=== PATIENT | male | born 1955 | race Two or more races ===

== ENCOUNTER 2016-11-14 02:20 | Emergency (ER) | payer OTHER ==
[~2016-11-14] VITALS: Ht 170.2 cm; Wt 74.8 kg
[2016-11-14 02:38] VITALS: BP 160/98
--- NOTE | 2016-11-14 02:38 | NUR ---
PT BIBSON, C/O COUGH AND CONGESTION X 3 DAYS. PT AOX4 RR EVEN AND UNLABORED. NO SOB NOTED. NAD NOTED. NO NVD AT THIS TIME. PT NOT DIAPHORETIC. PT PLACED ON MONITOR. WAITING FOR MD LUNSFORD.
--- NOTE | 2016-11-14 02:39 | NUR ---
DR. TSE AT BEDSIDE FOR EVAL.
--- NOTE | 2016-11-14 02:45 | NUR ---
XRAY AT BEDSIDE
--- NOTE | 2016-11-14 04:10 | NUR ---
PER OG FAXED XRAY RESULTS. GIVEN TO DR. TSE.
--- NOTE | 2016-11-14 04:11 | NUR ---
Patient discharged to home in stable condition. Written and verbal after care instructions given. Patient verbalizes understanding of instruction. ambulatory with a steady gait
== END 2016-11-14 04:12 | disposition home or self-care (01) ==
LOC: ER 02:23
DX: J06.9 Acute upper respiratory infection, unspecified (principal)
CPT/HCPCS: 71010-TC; A4606; Z7610

== ENCOUNTER 2018-01-18 17:59 | Emergency (ER) | payer OTHER ==
[~2018-01-18] VITALS: Ht 170.2 cm; Wt 76.2 kg
[2018-01-18 18:05] VITALS: BP 162/98
== END 2018-01-18 19:16 | disposition home or self-care (01) ==
LOC: ER 18:07
DX: J20.9 Acute bronchitis, unspecified (principal); R03.0 Elevated blood-pressure reading, without diagnosis of hypertension; F17.200 Nicotine dependence, unspecified, uncomplicated
CPT/HCPCS: 71045; 99283; A4606; Z7610

== ENCOUNTER 2018-01-24 12:39 | Emergency (ER) | payer OTHER ==
[~2018-01-24] VITALS: Ht 165.1 cm; Wt 74.8 kg
[2018-01-24 12:56] VITALS: BP 163/91
== END 2018-01-24 13:40 | disposition home or self-care (01) ==
LOC: ER 12:41
DX: I10 Essential (primary) hypertension (principal); E78.00 Pure hypercholesterolemia, unspecified; F17.200 Nicotine dependence, unspecified, uncomplicated
CPT/HCPCS: A4606; Z7610

== ENCOUNTER 2018-10-16 13:54 | Emergency (ER) | payer MEDICAID, OTHER ==
[~2018-10-16] VITALS: Ht 172.7 cm; Wt 74.8 kg
--- NOTE | 2018-10-16 13:59 | NUR ---
PT BIBSELF FOR LOW BACK PAIN S/P LIFTING HEAVY OBJECTS; PT AAOX4, PT TO BED 10, VSS, NAD NOTED, PENDING MD LUNSFORD
--- NOTE | 2018-10-16 14:02 | NUR ---
back pain x 10 days
[2018-10-16] MEDS ORDERED: CYCLOBENZAPRINE 10 MG TABLET ONE (14:50)
[2018-10-16] MEDS ORDERED: KETOROLAC TROMETHAMINE INJ 60 MG/2 ML VIAL IM ONE ×2 (14:50→15:00)
[2018-10-16] MEDS ORDERED: CYCLOBENZAPRINE 10 MG TABLET PO ONE (15:00)
--- NOTE | 2018-10-16 15:41 | NUR ---
CALLED OG TO HAVE IMAGE READ
[2018-10-16 16:38] LABS: BASOPHILS # (AUTO) 0.3 /CMM (0.0-0.2); BASOPHILS % (AUTO) 3.1 % (0.0-2.0); EOSINOPHILS % (AUTO) 1.2 % (0.0-6.0); HEMATOCRIT 41 % (39-51); HEMOGLOBIN 13.9 g/dL (13.5-17.5); LYMPHOCYTES # (AUTO) 2.4 /CMM (0.8-4.8); LYMPHOCYTES % (AUTO) 27.9 % (20.0-44.0); MEAN CORPUSCULAR HGB CONC 34 g/dl (31.0-36.0); MEAN CORPUSCULAR VOLUME 93 fL (80-96); MONOCYTES # (AUTO) 0.6 /CMM (0.1-1.30); MONOCYTES % (AUTO) 7.1 % (2.0-12.0); NEUTROPHILS # (AUTO) 5.2 /CMM (1.8-8.9); NEUTROPHILS % (AUTO) 60.7 % (43.0-81.0); PLATELET COUNT (AUTO) 319 /CMM (150-450); RED BLOOD CELL COUNT(AUTO) 4.43 MIL/uL (4.5-6.0); WHITE BLOOD COUNT (AUTO) 8.5 K/uL (4.3-11.0)
[2018-10-16 16:46] LABS: CALCIUM, SERUM 8.7 mg/dL (8.5-10.1); CREATININE 0.7 mg/dL (0.6-1.3); POTASSIUM 4.1 mmol/L (3.5-5.1)
--- NOTE | 2018-10-16 17:26 | NUR ---
RAMYA ROSENBAUM, SON [phone]
--- NOTE | 2018-10-16 17:37 | NUR ---
CALLED OG FOR IMAGES TO BE READ
--- NOTE | 2018-10-16 18:18 | NUR ---
Patient discharged to home in stable condition. Written and verbal after care instructions given. Patient verbalizes understanding of instruction.
[2018-10-16 18:27] VITALS: BP 139/90
== END 2018-10-16 18:27 | disposition home or self-care (01) ==
LOC: ER 13:55
DX: M54.5 Low back pain (principal); I10 Essential (primary) hypertension; E78.00 Pure hypercholesterolemia, unspecified; F17.200 Nicotine dependence, unspecified, uncomplicated; W20.8XXA Other cause of strike by thrown, projected or falling object, initial encounter; Y93.E9 Activity, other interior property and clothing maintenance; Y92.89 Other specified places as the place of occurrence of the external cause; Y99.8 Other external cause status
CPT/HCPCS: 36415; 71045; 72110; 72128; 72131; 80048; 85025; 85730; 93005; 96372; 99284; J1885

== ENCOUNTER 2018-12-03 12:58 | Emergency (ER) | payer MEDICAID, OTHER ==
[~2018-12-03] VITALS: Ht 170.2 cm; Wt 79.4 kg
[2018-12-03 13:19] VITALS: BP 126/71
== END 2018-12-03 14:45 | disposition home or self-care (01) ==
LOC: ER 13:00
DX: S80.212A Abrasion, left knee, initial encounter (principal); M70.52 Other bursitis of knee, left knee; I10 Essential (primary) hypertension; E78.00 Pure hypercholesterolemia, unspecified; F17.200 Nicotine dependence, unspecified, uncomplicated; W22.8XXA Striking against or struck by other objects, initial encounter; Y93.89 Activity, other specified; Y92.89 Other specified places as the place of occurrence of the external cause; Y99.8 Other external cause status
CPT/HCPCS: 73560-TC

== ENCOUNTER 2019-01-25 11:27 | Emergency (ER) | payer OTHER ==
[~2019-01-25] VITALS: Ht 170.2 cm; Wt 77.1 kg
[2019-01-25 11:39] VITALS: BP 147/95
[2019-01-25] MEDS ORDERED: LIDOCAINE MPF 1%-EPI 1:200,000 30 ML VIAL IJ ONE (14:09)
== END 2019-01-25 17:34 | disposition home or self-care (01) ==
LOC: ER 11:27
DX: M70.42 Prepatellar bursitis, left knee (principal); I10 Essential (primary) hypertension; E78.00 Pure hypercholesterolemia, unspecified; F17.200 Nicotine dependence, unspecified, uncomplicated; Y93.89 Activity, other specified
CPT/HCPCS: 20610; 36415; 73564; 89051; 99284; J3490

== ENCOUNTER 2019-02-11 14:04 | Emergency (ER) | payer OTHER ==
[~2019-02-11] VITALS: Ht 170.2 cm; Wt 70.3 kg
--- NOTE | 2019-02-11 14:21 | NUR ---
PT. CAME IN FOR DIFFUSED ABDOMINAL PAIN 2x DAYS. PT IS PLACED INTO BED 9. PT NOT IN ANY DISTRESS. EVEN AND UNLABORED BREATHING. VSS. AAOX4. WILL CONTINUE TO MONITOR FOR SAFETY.
[2019-02-11] MEDS ORDERED: IV NS 0.9% 500 ML BAG IV ONE (14:30)
[2019-02-11 14:42] LABS: BASOPHILS % (AUTO) 0.5 % (0.0-2.0); EOSINOPHILS % (AUTO) 1.5 % (0.0-6.0); HEMATOCRIT 38 % (39-51); HEMOGLOBIN 13.2 g/dL (13.5-17.5); LYMPHOCYTES # (AUTO) 2.7 /CMM (0.8-4.8); MEAN CORPUSCULAR HGB CONC 35 g/dl (31.0-36.0); MEAN CORPUSCULAR VOLUME 91 fL (80-96); MONOCYTES # (AUTO) 0.8 /CMM (0.1-1.30); MONOCYTES % (AUTO) 9.6 % (2.0-12.0); NEUTROPHILS # (AUTO) 4.7 /CMM (1.8-8.9); NEUTROPHILS % (AUTO) 56.4 % (43.0-81.0); PLATELET COUNT (AUTO) 331 /CMM (150-450); RED BLOOD CELL COUNT(AUTO) 4.19 MIL/uL (4.5-6.0); WHITE BLOOD COUNT (AUTO) 8.4 K/uL (4.3-11.0)
[2019-02-11 14:52] LABS: CALCIUM, SERUM 9.1 mg/dL (8.5-10.1); CARBON DIOXIDE 27 mmol/L (21-32); CHLORIDE 101 mmol/L (98-107); CREATININE 0.7 mg/dL (0.6-1.3); GLUCOSE 93 mg/dL (74-106); POTASSIUM 3.5 mmol/L (3.5-5.1); SODIUM SERUM 137 mmol/L (136-145); UREA NITROGEN, BLOOD 16 mg/dL (7-18)
[2019-02-11 15:05] LABS: ALANINE AMINOTRANSFERASE 39 U/L (12-78); ALBUMIN 3.6 g/dL (3.4-5.0); ALKALINE PHOSPHATASE 94 U/L (46-116); ASPARTATE AMINOTRANSFERASE 24 U/L (15-37); BILIRUBIN,DIRECT 0.1 mg/dL (0.0-0.2); BILIRUBIN,TOTAL 0.6 mg/dL (0.2-1.0); LIPASE 127 U/L (73-393); TOTAL PROTEIN, SERUM 7.7 g/dL (6.4-8.2)
--- NOTE | 2019-02-11 16:22 | NUR ---
IV removed. Catheter intact and site benign. Pressure and 4x4 applied to site. No bleeding noted.Patient discharged to home in stable condition. Written and verbal after care instructions given. Patient verbalizes understanding of instruction.
[2019-02-11 16:23] VITALS: BP 137/88
== END 2019-02-11 16:23 | disposition home or self-care (01) ==
LOC: ER 14:04
DX: K57.32 Diverticulitis of large intestine without perforation or abscess without bleeding (principal); I10 Essential (primary) hypertension; E78.00 Pure hypercholesterolemia, unspecified; F17.200 Nicotine dependence, unspecified, uncomplicated
CPT/HCPCS: 36415; 80048-TC; 80076-TC; 83690-TC; 84484-TC; 85025-TC; J7040

== ENCOUNTER 2019-12-04 15:45 | Emergency (ER) | payer OTHER ==
[~2019-12-04] VITALS: Ht 170.2 cm; Wt 79.4 kg
[2019-12-04 16:11] VITALS: BP 165/96
--- NOTE | 2019-12-04 16:18 | NUR ---
SEEN AND EXAMINED BY .
--- NOTE | 2019-12-04 16:35 | NUR ---
PRODUCT LINE MANAGER AT BEDSIDE FOR XRAY.
[2019-12-04] MEDS ORDERED: ATOR40TA PO (17:00)
[2019-12-04] MEDS ORDERED: HYDR25TA4 PO (17:00)
--- NOTE | 2019-12-04 18:23 | NUR ---
Patient discharged to home in stable condition. Written and verbal after care instructions given. Patient verbalizes understanding of instruction.
== END 2019-12-04 18:24 | disposition home or self-care (01) ==
LOC: ER 16:00
DX: B34.9 Viral infection, unspecified (principal); I10 Essential (primary) hypertension; E78.00 Pure hypercholesterolemia, unspecified; F17.200 Nicotine dependence, unspecified, uncomplicated; Z79.899 Other long term (current) drug therapy
CPT/HCPCS: 71045-TC

== ENCOUNTER 2020-01-07 18:04 | Emergency (ER) | payer OTHER ==
[~2020-01-07] VITALS: Ht 170.2 cm; Wt 79.4 kg
[~2020-01-07 18:04] MED LIST: ATOR40TA PO; HYDR25TA4 PO
--- NOTE | 2020-01-07 18:05 | NUR ---
PT BIB SELF C/O R HAND LACERATION. PT IS AAOX4, NOT IN RESPIRATORY DISTRESS, V/S STABLE, KEPT RESTED AND COMFORTABLE. WILL CONTINUE TO MONITOR.
--- NOTE | 2020-01-07 18:43 | NUR ---
TRACY ULLOA AT BEDSIDE FOR EVAL.
[2020-01-07] MEDS ORDERED: TDAP [DIPH/PERTUSSIS/TET] 0.5 ML VIAL IM ONE ×2 (18:45→19:00)
[2020-01-07] MEDS ORDERED: ACETAMINOPHEN ES 500 MG TABLET ONE (18:45)
[2020-01-07] MEDS ORDERED: LIDOCAINE 1%-EPI 1:100,000 20 ML VIAL ONE (18:46)
--- NOTE | 2020-01-07 18:58 | NUR ---
PRECISION HONING MACHINE OPERATOR AT BEDSIDE FOR XRAY.
[2020-01-07] MEDS ORDERED: ACETAMINOPHEN 325 MG TABLET PO ONE (19:00)
[2020-01-07 20:23] VITALS: BP 132/79
--- NOTE | 2020-01-07 20:23 | NUR ---
Patient discharged to home in stable condition. Written and verbal after care instructions given. Patient verbalizes understanding of instruction.
== END 2020-01-07 20:25 | disposition home or self-care (01) ==
LOC: ER 18:08
DX: S61.411A Laceration without foreign body of right hand, initial encounter (principal); I10 Essential (primary) hypertension; E78.00 Pure hypercholesterolemia, unspecified; Z79.899 Other long term (current) drug therapy; W25.XXXA Contact with sharp glass, initial encounter; Y93.89 Activity, other specified; Y92.89 Other specified places as the place of occurrence of the external cause; Y99.8 Other external cause status
CPT/HCPCS: 12002; 73130; 90471; 90715; 99283; A6403; J3490; L3763

== ENCOUNTER 2020-01-10 10:03 | Emergency (ER) | payer OTHER ==
[~2020-01-10] VITALS: Ht 170.2 cm; Wt 68.0 kg
[2020-01-10 10:12] VITALS: BP 136/83
== END 2020-01-10 10:38 | disposition home or self-care (01) ==
LOC: ER 10:03
DX: S61.411D Laceration without foreign body of right hand, subsequent encounter (principal); I10 Essential (primary) hypertension; E78.00 Pure hypercholesterolemia, unspecified; Z79.899 Other long term (current) drug therapy; X58.XXXD Exposure to other specified factors, subsequent encounter

== ENCOUNTER 2020-01-17 15:26 | Emergency (ER) | payer OTHER ==
[~2020-01-17] VITALS: Ht 170.2 cm; Wt 77.1 kg
[2020-01-17 15:26] VITALS: BP 137/89
--- NOTE | 2020-01-17 16:01 | NUR ---
Suture removed, patient tolerated.
== END 2020-01-17 16:19 | disposition home or self-care (01) ==
LOC: ER 15:26
DX: S61.411D Laceration without foreign body of right hand, subsequent encounter (principal); I10 Essential (primary) hypertension; E78.00 Pure hypercholesterolemia, unspecified; Z79.899 Other long term (current) drug therapy; X58.XXXD Exposure to other specified factors, subsequent encounter

== ENCOUNTER 2020-01-25 13:51 | Emergency (ER) | payer OTHER ==
[~2020-01-25] VITALS: Ht 154.9 cm; Wt 68.0 kg
[2020-01-25 14:30] VITALS: BP 147/86
[2020-01-25] MEDS ORDERED: KETOROLAC TROMETHAMINE INJ 30 MG/ML VIAL ONE (14:52)
[2020-01-25] MEDS ORDERED: KETOROLAC TROMETHAMINE INJ 60 MG/2 ML VIAL IM ONE (15:00)
--- NOTE | 2020-01-25 15:34 | NUR ---
Patient discharged to home in stable condition. Written and verbal after care instructions given. Patient verbalizes understanding of instruction.
== END 2020-01-25 15:36 | disposition home or self-care (01) ==
LOC: ER 13:54
DX: S43.492A Other sprain of left shoulder joint, initial encounter (principal); I10 Essential (primary) hypertension; E78.00 Pure hypercholesterolemia, unspecified; F17.200 Nicotine dependence, unspecified, uncomplicated; Z79.899 Other long term (current) drug therapy; X58.XXXA Exposure to other specified factors, initial encounter; Y93.89 Activity, other specified; Y92.89 Other specified places as the place of occurrence of the external cause; Y99.8 Other external cause status
CPT/HCPCS: 29105; 96372; 99283; J1885

== ENCOUNTER 2020-02-11 13:05 | Emergency (ER) | payer OTHER ==
[~2020-02-11] VITALS: Ht 170.2 cm; Wt 77.1 kg
[2020-02-11 13:10] VITALS: BP 145/96
[2020-02-11] MEDS ORDERED: KETOROLAC TROMETHAMINE INJ 60 MG/2 ML VIAL IM ONE ×2 (13:30→13:41)
--- NOTE | 2020-02-11 13:49 | NUR ---
Patient discharged to home in stable condition. Written and verbal after care instructions given. Patient verbalizes understanding of instruction.
== END 2020-02-11 13:51 | disposition home or self-care (01) ==
LOC: ER 13:07
DX: S23.3XXA Sprain of ligaments of thoracic spine, initial encounter (principal); I10 Essential (primary) hypertension; E78.00 Pure hypercholesterolemia, unspecified; F17.200 Nicotine dependence, unspecified, uncomplicated; Z79.899 Other long term (current) drug therapy; X58.XXXA Exposure to other specified factors, initial encounter; Y93.89 Activity, other specified; Y92.89 Other specified places as the place of occurrence of the external cause; Y99.8 Other external cause status
CPT/HCPCS: 96372; 99283; J1885

== ENCOUNTER 2020-03-03 15:11 | Emergency (ER) | payer OTHER ==
[~2020-03-03] VITALS: Ht 170.2 cm; Wt 77.1 kg
[2020-03-03 15:25] VITALS: BP 148/95
== END 2020-03-03 16:08 | disposition home or self-care (01) ==
LOC: ER 15:14
DX: S43.492A Other sprain of left shoulder joint, initial encounter (principal); D17.1 Benign lipomatous neoplasm of skin and subcutaneous tissue of trunk; I10 Essential (primary) hypertension; E78.00 Pure hypercholesterolemia, unspecified; Z79.899 Other long term (current) drug therapy; X58.XXXA Exposure to other specified factors, initial encounter; Y93.89 Activity, other specified; Y92.89 Other specified places as the place of occurrence of the external cause; Y99.8 Other external cause status

== ENCOUNTER 2020-07-11 20:45 | Emergency (ER) | payer OTHER ==
[~2020-07-11] VITALS: Ht 170.2 cm; Wt 77.1 kg
[2020-07-11 21:28] VITALS: BP 155/89
--- NOTE | 2020-07-11 21:28 | NUR ---
PT BIBSELF C/O HIGH BLOOD PRESSURE. PT AAOX4 BREATHING EVENLY AND UNLABORED. PT STATES "I HAD A HEADACHE AT 1300 AND I TOOK MY BP TWICE IT WAS IN THE 190S BOTH TIMES". UPON ASSESSMENT PT BP 155/89. PT HOOKED TO [employer]ER AND POX. PT SKIN WARM, DRY AND INTACT. PT GIVEN BLANKET AND CALL LIGHT WITHIN REACH.
--- NOTE | 2020-07-11 22:08 | NUR ---
Pt is medically stable for D/C. Patient discharged to home in stable condition. Written and verbal after care instructions given. Patient verbalizes understanding of instruction.
== END 2020-07-11 22:10 | disposition home or self-care (01) ==
LOC: ER 20:48
DX: I10 Essential (primary) hypertension (principal); E78.00 Pure hypercholesterolemia, unspecified; Z79.899 Other long term (current) drug therapy

== ENCOUNTER 2020-11-24 20:21 | Emergency (ER) | payer OTHER ==
[~2020-11-24] VITALS: Ht 170.2 cm; Wt 72.6 kg
[2020-11-24 20:52] VITALS: BP 132/81
[2020-11-24] MEDS ORDERED: PRED20TA PO (21:23)
[2020-11-24] MEDS ORDERED: DIPH25CA83 PO (21:23)
== END 2020-11-24 21:27 | disposition home or self-care (01) ==
LOC: ER 20:26
DX: R21 Rash and other nonspecific skin eruption (principal); I10 Essential (primary) hypertension; E78.00 Pure hypercholesterolemia, unspecified; F17.200 Nicotine dependence, unspecified, uncomplicated; Z79.899 Other long term (current) drug therapy

== ENCOUNTER 2021-10-13 08:14 | Emergency (ER) | payer OTHER ==
[~2021-10-13] VITALS: Ht 170.2 cm; Wt 74.8 kg
[~2021-10-13 08:14] MED LIST changes: +DIPH25CA83 PO; +PRED20TA PO
--- NOTE | 2021-10-13 08:19 | NUR ---
BISB C/O LEFT SIDED BACK PAIN X MONTHS, PT IS AMBULATORY AND DENIES ANY UA S/S. AWAITING MD LUNSFORD.
--- NOTE | 2021-10-13 08:35 | NUR ---
X RAY AT BEDSIDE
[2021-10-13] MEDS ORDERED: IBUP-1955 PO (08:49)
[2021-10-13] MEDS ORDERED: CAPS1ADH5 TP (08:49)
--- NOTE | 2021-10-13 09:11 | NUR ---
Patient discharged to home in stable condition. Written and verbal after care instructions given. Patient verbalizes understanding of instruction.
[2021-10-13 09:12] VITALS: BP 147/80
== END 2021-10-13 09:12 | disposition home or self-care (01) ==
LOC: ER 08:20
DX: M54.50 Low back pain, unspecified (principal); I10 Essential (primary) hypertension; E78.00 Pure hypercholesterolemia, unspecified; F17.200 Nicotine dependence, unspecified, uncomplicated; Z79.899 Other long term (current) drug therapy
CPT/HCPCS: 72100-TC

== ENCOUNTER 2021-12-17 20:37 | Inpatient (IN) | payer OTHER ==
[~2021-12-17] VITALS: Ht 170.2 cm; Wt 81.6 kg
[~2021-12-17 20:37] MED LIST changes: +CAPS1ADH5 TP; +IBUP-1955 PO
--- NOTE | 2021-12-17 20:50 | NUR ---
TO ER BED 19. BIBSELF C/O RASH X3 DAYS. TAKING BENADRYL AT HOME. PT IS ALERT AND ORIENTED. AMBULATORY WITH STEADY GAIT. CONNECTED TO MONITOR. AWAITING MD LUNSFORD
--- NOTE | 2021-12-17 21:13 | NUR ---
LAB AT BEDSIDE
--- NOTE | 2021-12-17 21:15 | NUR ---
PT AMBULATED TO BATHROOM, STEADY GAIT NOTED
--- NOTE | 2021-12-17 21:18 | NUR ---
URINE SAMPLE SENT TO LAB
[2021-12-17 21:21] LABS: BASOPHILS % (AUTO) 0.5 % (0.0-2.0); EOSINOPHILS % (AUTO) 0.8 % (0.0-6.0); HEMATOCRIT 38 % (39-51); HEMOGLOBIN 12.9 g/dL (13.5-17.5); LYMPHOCYTES # (AUTO) 1.9 K/uL (0.8-4.8); LYMPHOCYTES % (AUTO) 23.2 % (20.0-44.0); MEAN CORPUSCULAR HGB CONC 34 g/dl (31.0-36.0); MEAN CORPUSCULAR VOLUME 93 fL (80-96); MONOCYTES # (AUTO) 0.8 K/uL (0.1-1.30); MONOCYTES % (AUTO) 9.6 % (2.0-12.0); NEUTROPHILS # (AUTO) 5.3 K/uL (1.8-8.9); NEUTROPHILS % (AUTO) 65.9 % (43.0-81.0); PLATELET COUNT (AUTO) 298 K/uL (150-450)
[2021-12-17 21:43] LABS: BILIRUBIN,URINE SMALL (NEGATIVE); COLOR,URINE YELLOW (YELLOW); LEUKOCYTE ESTERASE ,URINE NEGATIVE (NEGATIVE); NITRITE, URINE NEGATIVE (NEGATIVE); PROTEIN,URINE NEGATIVE (NEGATIVE); UGLUCOSE NEGATIVE (NEGATIVE)
[2021-12-17 21:45] LABS: CALCIUM, SERUM 8.7 mg/dL (8.5-10.1); CREATININE 0.8 mg/dL (0.6-1.3); POTASSIUM 3.4 mmol/L (3.5-5.1)
[2021-12-17 21:52] LABS: ALBUMIN 3.4 g/dL (3.4-5.0); BILIRUBIN,DIRECT 1.1 mg/dL (0.0-0.2); BILIRUBIN,TOTAL 1.4 mg/dL (0.2-1.0); TOTAL PROTEIN, SERUM 7.9 g/dL (6.4-8.2)
[2021-12-17 21:54] LABS: BACTERIA,URINE Few /HPF (None Seen); SQUAMOUS EPITHELIAL CELL,UR Few /HPF (None Seen); WBC,URINE 0-2 /HPF (0-3)
--- NOTE | 2021-12-17 22:51 | NUR ---
ULTRASOUND AT BEDSIDE
--- NOTE | 2021-12-17 23:15 | NUR ---
COVID SWAB COLLECTED AND SENT TO LAB
--- NOTE | 2021-12-17 23:15 | NUR ---
IV LINE ESTABLISHED, RWRIST 20G
[2021-12-17] MEDS ORDERED: IV NS 0.9% 1,000 ML BAG IV ONE (23:30)
[2021-12-18] MEDS ORDERED: ACETAMINOPHEN 325 MG TABLET PO PRN
[2021-12-18] MEDS ORDERED: MAGNESIUM HYDROXIDE 30 ML UDC PO PRN
[2021-12-18] MEDS ORDERED: ONDANSETRON HCL/PF 4 MG/2 ML VIAL IVP PRN
[2021-12-18] MEDS ORDERED: ZOLPIDEM TARTRATE 5 MG TABLET PO PRN
[2021-12-18] MEDS ORDERED: MAG HYDROX/AL HYDROX/SIMETH 30 ML UDC PO PRN
[2021-12-18] MEDS ORDERED: Z GUARD REMEDY 4 OZ OINT TP PRN
--- NOTE | 2021-12-18 01:39 | NUR ---
REPORT GIVENT TO THELMA KING.
[2021-12-18] MEDS ORDERED: PIPERACILLIN /TAZOBACTAM 3.375 G in IV D5W 50 ML IV SCH ×2 (02:00→08:00)
[2021-12-18] MEDS ORDERED: PIPERACILLIN /TAZOBACTAM 3.375 G VIAL IV ONE (02:58)
--- NOTE | 2021-12-18 07:53 | NUR ---
ADMITTED AT 0140. SEE DOWN TIME DOCUMENTATION
--- NOTE | 2021-12-18 08:00 | NUR ---
ms rn received on bed, awake,alert,oriented x4,ambulatory patient, not in any form of distress, respirations even and unlabored,no sob noted, came in w/ distended bladder/hyperbilirubinemia, denies pain at this time, will monitor patient.
[2021-12-18 08:32] LABS: BASOPHILS % (AUTO) 0.3 % (0.0-2.0); EOSINOPHILS % (AUTO) 0.5 % (0.0-6.0); HEMATOCRIT 36 % (39-51); HEMOGLOBIN 12.3 g/dL (13.5-17.5); LYMPHOCYTES % (AUTO) 29.3 % (20.0-44.0); MEAN CORPUSCULAR HGB CONC 34 g/dl (31.0-36.0); MEAN CORPUSCULAR VOLUME 94 fL (80-96); MONOCYTES # (AUTO) 0.8 K/uL (0.1-1.30); MONOCYTES % (AUTO) 12.2 % (2.0-12.0); NEUTROPHILS % (AUTO) 57.7 % (43.0-81.0); PLATELET COUNT (AUTO) 277 K/uL (150-450); RED BLOOD CELL COUNT(AUTO) 3.89 MIL/uL (4.5-6.0); WHITE BLOOD COUNT (AUTO) 6.9 K/uL (4.3-11.0)
[2021-12-18 08:37] LABS: ALBUMIN 2.9 g/dL (3.4-5.0); BILIRUBIN,TOTAL 2.2 mg/dL (0.2-1.0); CALCIUM, SERUM 8.2 mg/dL (8.5-10.1); CREATININE 0.7 mg/dL (0.6-1.3); PHOSPHORUS 2.8 mg/dL (2.5-4.9); POTASSIUM 3.2 mmol/L (3.5-5.1); TOTAL PROTEIN, SERUM 7.1 g/dL (6.4-8.2)
--- NOTE | 2021-12-18 09:00 | NUR ---
ms logan npo at this time ,for mrcp? today, due meds given, tolerated well.
[2021-12-18] MEDS: PANTOPRAZOLE 40 MG VIAL IV SCH (09:15)
[2021-12-18] MEDS: HYDROCHLOROTHIAZIDE 25 MG TABLET PO SCH (09:16)
[2021-12-18] MEDS: diphenhydrAMINE HCL 25 MG CAPSULE PO PRN (09:21)
[2021-12-18] MEDS: PIPERACILLIN /TAZOBACTAM 3.375 G in IV D5W 100 ML IV SCH ×2 (09:32→16:45)
[2021-12-18] MEDS ORDERED: ANESTHESIA TRAY IN PYXIS 1 EA TRAY MC ONE (10:47)
[2021-12-18] MEDS ORDERED: CAPSAICIN 0.075% CREAM 60 GM TUBE TP PRN (12:00)
[2021-12-18] MEDS ORDERED: hydrALAZINE HCL IV 20 MG VIAL IV PRN (14:30)
[2021-12-18] MEDS: POTASSIUM CL. PREMIX PERIPHER. 50 ML IV SCH ×4 (15:39→21:26)
--- NOTE | 2021-12-18 16:00 | NUR ---
MS RN WENT DOWN FOR MRCP.
--- NOTE | 2021-12-18 16:30 | NUR ---
ms rn came back from [email or web address] for ercp per dr olea, waiting for him to put order.
--- NOTE | 2021-12-18 17:10 | NUR ---
MS RN CALLED DR. PRATT FOR MRCP RESULT, OK TO DO ERCP.
--- NOTE | 2021-12-18 17:48 | NUR ---
MS RN READY FOR ERCP, STILL WAITING FOR DR. SOLIS TO WRITE ORDERS.
[2021-12-18] MEDS ORDERED: IOHEXOL 240MG/ML 50 ML IV ONE (18:16)
[2021-12-18] MEDS ORDERED: INDOMETHACIN 50 MG SUPP.RECT ONE (18:16)
--- NOTE | 2021-12-18 18:32 | NUR ---
MS RN ON BED, WAITING FOR ERCO,ALL NEEDS ATTENDED.
--- NOTE | 2021-12-18 19:40 | NUR ---
MS/RN OPENING NOTE RECEIVED PATIENT RESTING IN BED. AWAKE, ALERT AND ORIENTED X 4. ABLE TO MAKE NEEDS KNOWN. DENIES PAIN AT THIS TIME. CONTINUES ON ROOM AIR WITH NO S/SX OF RESPIRATORY DISTRESS NOTED. IV ACCESS TO RIGHT WRIST #20G INTACT AND PATENT. CONTINUES ON IVF NS @ 100 ML/HR. CONTINUES ON IV ABX. CONTINUES ON IV POTASSIUM X 4 BAGS. CONTINUES ON NPO STATUS. DENIES NAUSEA OR VOMITING AT THIS TIME. FAMILY AT BEDSIDE. CALL LIGHT WITHIN REACH. ASPIRATION, FALL AND SAFETY PRECAUTIONS MAINTAINED. ALL NEEDS ATTENDED TO AT THIS TIME.
[2021-12-18 20:00] VITALS: BP 144/89
[2021-12-18] MEDS: HYDROCORTISONE 1% CREAM 28.35 GM TUBE TP SCH (21:56)
[2021-12-18] MEDS: ATORVASTATIN 40 MG TABLET PO SCH (22:00)
[2021-12-18] MEDS: IV NS 0.9% 1,000 ML IV PRN (22:36)
[2021-12-19] MEDS: PIPERACILLIN /TAZOBACTAM 3.375 G in IV D5W 100 ML IV SCH ×4 (00:18→23:31)
--- NOTE | 2021-12-19 06:40 | NUR ---
MS/RN CLOSING NOTE PATIENT CURRENTLY SLEEPING IN BED. ALERT AND ORIENTED X 4. ABLE TO MAKE NEEDS KNOWN. DENIES PAIN AT THIS TIME. CONTINUES ON ROOM AIR WITH NO S/SX OF RESPIRATORY DISTRESS NOTED. IV ACCESS TO RIGHT WRIST #20G INTACT AND PATENT. CONTINUES ON IVF NS @ 100 ML/HR. CONTINUES ON IV ABX. CONTINUES ON NPO STATUS. DENIES NAUSEA OR VOMITING AT THIS TIME. CALL LIGHT WITHIN REACH. ASPIRATION, FALL AND SAFETY PRECAUTIONS MAINTAINED. WILL ENDORSE PLAN OF CARE TO ONCOMING SHIFT RN.
[2021-12-19 07:11] LABS: CALCIUM, SERUM 8.8 mg/dL (8.5-10.1); CREATININE 0.8 mg/dL (0.6-1.3); POTASSIUM 2.9 mmol/L (3.5-5.1)
--- NOTE | 2021-12-19 07:20 | NUR ---
ms rn received patient sleeping, alert,oriented x4,not in any form of distress, respirations even and unlabored,no sob noted, remain on npo, will ask md later, all needs attended, call light within reach.
[2021-12-19 08:00] VITALS: BP 137/81
--- NOTE | 2021-12-19 09:00 | NUR ---
ms rn was seen by nila monteiro, patient to remain npo and call dr. olea when will he be doing the procedure.
--- NOTE | 2021-12-19 09:12 | NUR ---
ms rn called dr. olea's office, at [phone], left message,awaiting for them to call back.
[2021-12-19] MEDS: HYDROCHLOROTHIAZIDE 25 MG TABLET PO SCH (09:21)
[2021-12-19] MEDS: PANTOPRAZOLE 40 MG VIAL IV SCH (09:21)
[2021-12-19] MEDS: HYDROCORTISONE 1% CREAM 28.35 GM TUBE TP SCH ×2 (09:45→18:13)
[2021-12-19] MEDS: POTASSIUM CL. PREMIX PERIPHER. 50 ML IV SCH ×2 (10:51→12:59)
--- NOTE | 2021-12-19 12:00 | NUR ---
ms rn lefty monteiro called back, will be done on Wednesday, wants patient to stay, patient instrucred to be npo post midnight of wednesday.
[2021-12-19] MEDS ORDERED: POTASSIUM CHLORIDE 20 MEQ TAB.PRT.SR PO ONE (14:00)
[2021-12-19] MEDS ORDERED: POTASSIUM CHLORIDE 20 MEQ TAB.PRT.SR PO SCH ×2 (14:00→15:30)
--- NOTE | 2021-12-19 18:58 | NUR ---
ms rn pateint on regular diet now per dr. dotson,tolerated dinner w/o nausea.
--- NOTE | 2021-12-19 19:45 | NUR ---
MS/RN OPENING NOTE RECEIVED PATIENT RESTING IN BED. AWAKE, ALERT AND ORIENTED X 4. ABLE TO MAKE NEEDS KNOWN. DENIES PAIN AT THIS TIME. CONTINUES ON ROOM AIR WITH NO S/SX OF RESPIRATORY DISTRESS NOTED. IV ACCESS TO RIGHT WRIST #20G INTACT AND PATENT. CONTINUES ON IVF NS @ 100 ML/HR. CONTINUES ON IV ABX. CONTINUES ON REGULAR DIET WITH NO NAUSEA OR VOMITING NOTED. FAMILY AT BEDSIDE. CALL LIGHT WITHIN REACH. ASPIRATION, FALL AND SAFETY PRECAUTIONS MAINTAINED. ALL NEEDS ATTENDED TO AT THIS TIME
[2021-12-19 20:00] VITALS: BP 151/91
[2021-12-19] MEDS: ATORVASTATIN 40 MG TABLET PO SCH (21:31)
[2021-12-20] MEDS: IV NS 0.9% 1,000 ML IV PRN ×2 (05:49→16:13)
--- NOTE | 2021-12-20 06:40 | NUR ---
MS/RN CLOSING NOTE PATIENT CURRENTLY SLEEPING IN BED. ALERT AND ORIENTED X 4. ABLE TO MAKE NEEDS KNOWN. DENIES PAIN AT THIS TIME. CONTINUES ON ROOM AIR WITH NO S/SX OF RESPIRATORY DISTRESS NOTED. IV ACCESS TO RIGHT WRIST #20G INTACT AND PATENT. CONTINUES ON IVF NS @ 100 ML/HR. CONTINUES ON IV ABX. CONTINUES ON REGULAR DIET. DENIES NAUSEA OR VOMITING AT THIS TIME. CALL LIGHT WITHIN REACH. ASPIRATION, FALL AND SAFETY PRECAUTIONS MAINTAINED. WILL ENDORSE PLAN OF CARE TO ONCOMING SHIFT RN.
--- NOTE | 2021-12-20 07:15 | NUR ---
ms rn received on bed, awake.,alert,oriented x4,not in any form of distress, respirations even and unlabored,no sob noted, lungs are clear,abdomen soft,positive bowel sounds,denies pain at this time, all needs attended.
[2021-12-20 07:47] LABS: CALCIUM, SERUM 8.6 mg/dL (8.5-10.1); CREATININE 0.9 mg/dL (0.6-1.3); POTASSIUM 3.3 mmol/L (3.5-5.1)
[2021-12-20 08:00] VITALS: BP 128/76
--- NOTE | 2021-12-20 08:20 | NUR ---
ms logan breakfast served,due meds given,tolerated well.
[2021-12-20] MEDS ORDERED: POTASSIUM CHLORIDE 20 MEQ TAB.PRT.SR PO ONE (08:30)
[2021-12-20 08:56] LABS: ALBUMIN 2.9 g/dL (3.4-5.0); BILIRUBIN,DIRECT 1.9 mg/dL (0.0-0.2); BILIRUBIN,TOTAL 2.2 mg/dL (0.2-1.0)
[2021-12-20] MEDS: HYDROCHLOROTHIAZIDE 25 MG TABLET PO SCH (09:26)
[2021-12-20] MEDS: PANTOPRAZOLE 40 MG VIAL IV SCH (09:26)
[2021-12-20] MEDS: PIPERACILLIN /TAZOBACTAM 3.375 G in IV D5W 100 ML IV SCH ×3 (09:27→23:01)
[2021-12-20] MEDS: HYDROCORTISONE 1% CREAM 28.35 GM TUBE TP SCH ×2 (09:35→18:35)
--- NOTE | 2021-12-20 11:00 | NUR ---
ms desmond was seen by md livingston/ jacques for monicao verona in prep for ercp in am.
[2021-12-20] MEDS ORDERED: ANESTHESIA TRAY IN PYXIS 1 EA TRAY MC ONE (14:20)
--- NOTE | 2021-12-20 15:32 | NUR ---
ms rn on bed, no distress noted.
--- NOTE | 2021-12-20 19:02 | NUR ---
rn for ercp in am, instructed not to eat and drink starting 12 mn.
--- NOTE | 2021-12-20 19:30 | NUR ---
MS RN OPENING NOTE RECEIVED PT AWAKE IN BED. FAMILY AT BEDSIDE. A/O X4 AND ABLE TO MAKE NEEDS KNOWN. PT STABLE ON ROOM AIR. NO SOB OR S/S OF RESPIRATORY DISTRESS. BREATHING EVEN AND UNLABORED. IV ACCESS R WRIST 20 GAUGE RUNNING NS @ 100 ML/HR. SAFETY PRECAUTIONS IN PLACE. BED IN LOWEST LOCKED POSITION, HOB ELEVATED, SIDE RAILS UP X2, AND CALL LIGHT AND TABLE WITHIN REACH. ALL NEEDS MET AT THIS TIME.
[2021-12-20 20:00] VITALS: BP 143/88
[2021-12-20] MEDS: ATORVASTATIN 40 MG TABLET PO SCH (21:37)
--- NOTE | 2021-12-21 06:24 | NUR ---
MS RN CLOSING NOTE PT AWAKE IN BED. A/O X4 AND ABLE TO MAKE NEEDS KNOWN. PT STABLE ON ROOM AIR. NO SOB OR S/S OF RESPIRATORY DISTRESS. BREATHING EVEN AND UNLABORED. IV ACCESS R WRIST 20 GAUGE RUNNING NS @ 100 ML/HR. ALL DUE MEDS GIVEN ORDERED. SAFETY PRECAUTIONS IN PLACE AT ALL TIMES. BED IN LOWEST LOCKED POSITION, HOB ELEVATED, SIDE RAILS UP X2, AND CALL LIGHT AND TABLE WITHIN REACH. ALL NEEDS MET AT THIS TIME AND WILL ENDORSE TO ONCOMING NURSE FOR MINOO.
[2021-12-21] MEDS: IV NS 0.9% 1,000 ML IV PRN ×2 (06:47→18:02)
[2021-12-21] MEDS: PIPERACILLIN /TAZOBACTAM 3.375 G in IV D5W 100 ML IV SCH (07:27)
--- NOTE | 2021-12-21 07:35 | NUR ---
RN OPENING NOTES PT AWAKE IN BED. A/O X4 , VERBALLY RESPONSIVE . PT STABLE ON ROOM AIR. NO SOB OR S/S OF RESPIRATORY DISTRESS. BREATHING EVEN AND UNLABORED. IV ACCESS R WRIST 20 GAUGE RUNNING NS @ 100 ML/HR. NPO AT THIS TIME ,SCHEDULE FOR ERCP @0800 , V/S TAKEN AND RECORDED , IV ATB ZOSYN GIVEN AND CEREAL MAKER FOR SURGERY , ENDORSED TO SURGERY STAFF
[2021-12-21] MEDS ORDERED: IOHEXOL-300 100 ML VIAL IV ONE (07:42)
[2021-12-21] MEDS ORDERED: INDOMETHACIN 50 MG SUPP.RECT PR ONE (07:42)
[2021-12-21] MEDS ORDERED: FENTANYL PF 100MCG/2ML AMPUL ONE ×2 (08:02→08:19)
--- NOTE | 2021-12-21 09:00 | NUR ---
RN NOTES MEDICATION FOR 0900 WAS NOT ADMINISTERED DUE TO PATIENT WAS IN SURGERY
--- NOTE | 2021-12-21 10:30 | NUR ---
RN NOTES PATIENT CAME BACK FROM SURGERY S/P ERCP , SEMI AWAKE AND AROUSABLE , V/S TAKEN AND RECORDED BP 143/80 OH 74 , RR 15 TEM P 97.5 AND O2 SAT 98% ON ROOM AIR , NO SOB OR DISTRESS NOTED NO C/O OF PAIN AND DISCOMFORT , CONTINUE WITH IV HYDRATION ORDERED , MD WITH ORDER FOR CLEAR LIQUID DIET AND ORDER NOTED AND CARRIED OUT , WILL CONTINUE TO MONITOR
--- NOTE | 2021-12-21 11:19 | NUR ---
RN NOTES DUE MEDS AT 0900 WAS NOT GIVEN PATIENT WAS ON SURGERY
[2021-12-21] MEDS: PANTOPRAZOLE 40 MG VIAL IV SCH (11:22)
[2021-12-21] MEDS: HYDROCORTISONE 1% CREAM 28.35 GM TUBE TP SCH ×2 (11:33→17:40)
[2021-12-21] MEDS: HYDROCHLOROTHIAZIDE 25 MG TABLET PO SCH (11:34)
--- NOTE | 2021-12-21 19:03 | NUR ---
RN CLOSING NOTES PATIENT S/P ERCP , AWAKE AND ABLE OT MAKE NEEDS KNOWN , V/S TAKEN AND RECORDED BP 143/80 AR 74 , RR 15 TEM P 97.5 AND O2 SAT 98% ON ROOM AIR , NO SOB OR DISTRESS NOTED NO C/O OF PAIN AND DISCOMFORT , CONTINUE WITH IV HYDRATION ORDERED OF NS @100 ML /HR , WITH ORDER FOR CLEAR LIQUID DIET AND ORDER NOTED AND ABLE TO TOLERATE LUNCH AND DINNER , STILL WAITING FOR RESULT OF THE BIOPSY , WILL ENDORSE TO NEXT SHIFT
--- NOTE | 2021-12-21 19:57 | NUR ---
RN OPENING NOTES RECEIVED PT IN BED, AWAKE, WITH FAMILY AT BEDSIDE. AOx4, SOMALI SPEAKING. ON RA AND TOLERATING WELL. NO SOB NOTED. NO S/SX OF RESPIRATORY DISTRESS NOTED. IV ACCESS IN R WRIST #20G RUNNING NS @ 100 MOL/HR. SAFETY PRECAUTIONS IN PLACE: BED IN LOWEST, LOCKED POSITION, SIDERAILS UPx2, AND BRAKES ON. TABLE AND CALL LIGHT WITHIN REACH. WILL CONTINUE TO MONITOR.
[2021-12-21 20:00] VITALS: BP 144/80
[2021-12-21] MEDS: ATORVASTATIN 40 MG TABLET PO SCH (21:26)
[2021-12-21] MEDS: diphenhydrAMINE HCL 25 MG CAPSULE PO PRN (21:26)
[2021-12-22] MEDS: IV NS 0.9% 1,000 ML IV PRN (03:09)
--- NOTE | 2021-12-22 06:56 | NUR ---
RN CLOSING NOTES PT IN BED, ASLEEP, AWAKENS TO VERBAL STIMULI. AOx4, HUNGARIAN SPEAKING. ON RA AND TOLERATING WELL. NO SOB NOTED. NO S/SX OF RESPIRATORY DISTRESS NOTED. IV ACCESS IN R WRIST #20G RUNNING NS @ 100 MOL/HR. ALL ORDERS CARRIED OUT. ALL NEEDS MET. PT KEPT CLEAN AND DRY. ADMINISTERED BENADRYL FOR ITCHING. SAFETY PRECAUTIONS IN PLACE: BED IN LOWEST, LOCKED POSITION, SIDERAILS UPx2, AND BRAKES ON. TABLE AND CALL LIGHT WITHIN REACH. WILL ENDORSE TO ONCOMING SHIFT FOR MINOO.
--- NOTE | 2021-12-22 07:30 | NUR ---
RN OPENING NOTES RECEIVED PT IN BED, AWAKE, WITH FAMILY AT BEDSIDE. AOx4, KENYAN SPEAKING. ON RA AND NO SOB OR DISTRESS NOTED . IV ACCESS IN R WRIST #20G RUNNING NS @ 100 MOL/HR. SAFETY PRECAUTIONS IN PLACE: BED IN LOWEST, LOCKED POSITION, SIDERAILS UPx2, AND BRAKES ON. TABLE AND CALL LIGHT WITHIN REACH. WILL CONTINUE TO MONITOR.
[2021-12-22 08:20] VITALS: BP 141/87
[2021-12-22] MEDS ORDERED: PANTOPRAZOLE 40 MG TABLET.DR PO SCH (09:00)
[2021-12-22] MEDS: HYDROCORTISONE 1% CREAM 28.35 GM TUBE TP SCH (09:52)
[2021-12-22 09:53] VITALS: BP 141/87
[2021-12-22] MEDS: HYDROCHLOROTHIAZIDE 25 MG TABLET PO SCH (09:53)
[2021-12-22 10:14] LABS: ALBUMIN 2.8 g/dL (3.4-5.0); BILIRUBIN,TOTAL 1.9 mg/dL (0.2-1.0); CREATININE 0.7 mg/dL (0.6-1.3); POTASSIUM 3.1 mmol/L (3.5-5.1); TOTAL PROTEIN, SERUM 6.7 g/dL (6.4-8.2)
--- NOTE | 2021-12-22 15:00 | NUR ---
MS NEUROPSYCHOLOGY SERVICE DIRECTOR NOTES PATIENT WAS SEEN BY DR BUSTILLOS AND WITH ORDER FOR DISCHARGE TO HOME , PATIENT IS MEDICALLY STABLE , DIET WAS ADVANCED TO REGULAR DIET TOLERATED DISCHARGE PAPERS WERE PREPARED AND DISCHARGED INSTRUCTIONS PROVIDED TO THE PATIENT REGARDING MEDICATIONS , FOLLOW UP WITH PCP , SAFETY PRECAUTIONS , AND TO CALL 911 IN CASE OF EMERGENCY , TRANSPORTATION WAS PROVIDED BY FAMILY VIA PRIVATE CAR , WAS AT BEDSIDE WHEN DISCHARGE [id number] PROVIDED AND ABLE TO UNDERSTAND , PATIENT LEFT WITH AROUND 1430 WITH NO C/O OF PAIN AND DISCOMFORT , NO SOB OR DISTRESS NOTED AND AMBULATORY AND ACCOMPANIED BY WHEN DISCHARGE .
== END 2021-12-22 14:34 | disposition home or self-care (01) ==
LOC: ER 20:46 → MED 12-18 01:43
PROVIDERS: ADMIT Nurse Practitioner Acute Care; ATTEND Internal Medicine
PROC: 0FC98ZZ Extirpation of Matter from Common Bile Duct, Via Natural or Artificial Opening Endoscopic (ICD-10-PCS; principal; 2021-12-21)
PROC: 0F798DZ Dilation of Common Bile Duct with Intraluminal Device, Via Natural or Artificial Opening Endoscopic (ICD-10-PCS; 2021-12-21)
DX: K80.50 Calculus of bile duct without cholangitis or cholecystitis without obstruction (principal); C24.1 Malignant neoplasm of ampulla of Vater; E87.1 Hypo-osmolality and hyponatremia; E87.6 Hypokalemia; K57.30 Diverticulosis of large intestine without perforation or abscess without bleeding; E78.00 Pure hypercholesterolemia, unspecified; Z20.822 Contact with and (suspected) exposure to COVID-19; K82.8 Other specified diseases of gallbladder; I10 Essential (primary) hypertension; Z79.899 Other long term (current) drug therapy; R16.1 Splenomegaly, not elsewhere classified; R74.01 Elevation of levels of liver transaminase levels; F17.200 Nicotine dependence, unspecified, uncomplicated; L30.9 Dermatitis, unspecified; N40.0 Benign prostatic hyperplasia without lower urinary tract symptoms; K83.8 Other specified diseases of biliary tract
CPT/HCPCS: 36415; 74018; 74181-TC; 76700-TC; 80048-TC; 80053-TC; 80076-TC; 81001; 83690-TC; 83735-TC; 84100-TC; 85025-TC; 85730-TC; 87081-TC; 94799-TC; C2625; C9113; C9803; G0378; J0330; J0360; J2543; J2704; J3010; J3480; J3490; J7030; J7042; J7050; J7060; Q0163; Q9966; Q9967

== ENCOUNTER 2022-06-21 18:12 | Emergency (ER) | payer MEDICARE, OTHER ==
[~2022-06-21] VITALS: Ht 170.2 cm; Wt 69.9 kg
[~2022-06-21 18:12] MED LIST changes: -ATOR40TA PO
[2022-06-21] MEDS ORDERED: MORPHINE SULFATE INJ 2 MG/ML DISP.SYRIN IV ONE (19:00)
[2022-06-21] MEDS ORDERED: IV NS 0.9% 1,000 ML BAG IV ONE (19:00)
[2022-06-21] MEDS ORDERED: FAMOTIDINE/PF INJ 20 MG/2 ML VIAL IV ONE ×2 (19:00→19:37)
--- NOTE | 2022-06-21 19:18 | NUR ---
PT WENT TO CT
[2022-06-21] MEDS ORDERED: MORPHINE SULFATE INJ 2 MG/ML DISP.SYRIN ONE (19:37)
[2022-06-21 20:17] LABS: BASOPHILS % (AUTO) 0.2 % (0.0-2.0); EOSINOPHILS % (AUTO) 1.3 % (0.0-6.0); HEMATOCRIT 33 % (39-51); HEMOGLOBIN 10.8 g/dL (13.5-17.5); LYMPHOCYTES # (AUTO) 3.1 K/uL (0.8-4.8); LYMPHOCYTES % (AUTO) 33.8 % (20.0-44.0); MEAN CORPUSCULAR HGB CONC 33 g/dl (31.0-36.0); MEAN CORPUSCULAR VOLUME 89 fL (80-96); MONOCYTES # (AUTO) 0.6 K/uL (0.1-1.30); MONOCYTES % (AUTO) 6.9 % (2.0-12.0); NEUTROPHILS # (AUTO) 5.4 K/uL (1.8-8.9); NEUTROPHILS % (AUTO) 57.8 % (43.0-81.0); PLATELET COUNT (AUTO) 335 K/uL (150-450); RED BLOOD CELL COUNT(AUTO) 3.74 MIL/uL (4.5-6.0); WHITE BLOOD COUNT (AUTO) 9.3 K/uL (4.3-11.0)
[2022-06-21 20:22] LABS: ALANINE AMINOTRANSFERASE 15 U/L (12-78); ALKALINE PHOSPHATASE 94 U/L (46-116); ASPARTATE AMINOTRANSFERASE 16 U/L (15-37); BILIRUBIN,DIRECT 0.1 mg/dL (0.0-0.2); BILIRUBIN,TOTAL 0.2 mg/dL (0.2-1.0); CALCIUM, SERUM 8.6 mg/dL (8.5-10.1); CARBON DIOXIDE 27 mmol/L (21-32); CHLORIDE 103 mmol/L (98-107); CREATININE 0.6 mg/dL (0.6-1.3); GLUCOSE 111 mg/dL (74-106); LIPASE 302 U/L (73-393); POTASSIUM 3.7 mmol/L (3.5-5.1); SODIUM SERUM 136 mmol/L (136-145); TOTAL PROTEIN, SERUM 6.7 g/dL (6.4-8.2); UREA NITROGEN, BLOOD 12 mg/dL (7-18)
[2022-06-21] MEDS ORDERED: OXYC-128 PO (21:34)
[2022-06-21 22:02] VITALS: BP 150/83
== END 2022-06-21 22:04 | disposition home or self-care (01) ==
LOC: ER 18:15
DX: R10.84 Generalized abdominal pain (principal); I10 Essential (primary) hypertension; E78.00 Pure hypercholesterolemia, unspecified; F17.200 Nicotine dependence, unspecified, uncomplicated; Z79.899 Other long term (current) drug therapy
CPT/HCPCS: 99285; 74176; 96374; 71045; 96361; 96375; 93005; 85025; 80048; 83690; 80076; 36415; 84484; J3490; J7030; J2270

== ENCOUNTER 2022-08-29 16:07 | Emergency (ER) | payer MEDICARE, OTHER ==
[~2022-08-29] VITALS: Ht 170.2 cm; Wt 72.6 kg
[~2022-08-29 16:07] MED LIST changes: +OXYC-128 PO
[2022-08-29] MEDS ORDERED: CLONIDINE HCL 0.1 MG TABLET PO ONE (16:30)
[2022-08-29] MEDS ORDERED: OXYMETAZOLINE HCL NASAL SPRAY 30 ML BOTTLE NS ONE ×2 (16:30→16:34)
[2022-08-29] MEDS ORDERED: ONDANSETRON 4 MG TAB.RAPDIS PO ONE (16:30)
[2022-08-29] MEDS ORDERED: CLONIDINE HCL 0.1 MG TABLET ONE (16:34)
[2022-08-29] MEDS ORDERED: ONDANSETRON 4 MG TAB.RAPDIS ONE (16:34)
--- NOTE | 2022-08-29 16:42 | NUR ---
PT IN BED 12, BREATHING IS EVEN AND UNLABORED NO S/S OF DISTRESS. BLEEDING IS CONTINUOUS PRESSURE BEING APPLIED.
--- NOTE | 2022-08-29 17:00 | NUR ---
PT'S NOSE BLEED HAS STOPED.
[2022-08-29 18:53] VITALS: BP 152/86
--- NOTE | 2022-08-29 18:53 | NUR ---
PT HAS BEEN EDUCATED ON DISCHARGE INSTRUCTION. STEADY GATE VITAL WNL. ACCOMPALINED BY .
== END 2022-08-29 18:54 | disposition home or self-care (01) ==
LOC: ER 16:12
DX: R04.0 Epistaxis (principal); E78.00 Pure hypercholesterolemia, unspecified; I10 Essential (primary) hypertension; F17.200 Nicotine dependence, unspecified, uncomplicated; Z79.899 Other long term (current) drug therapy
CPT/HCPCS: 99284; Q0162

== ENCOUNTER 2023-12-29 13:20 | Emergency (ER) | payer MEDICARE, OTHER ==
[~2023-12-29] VITALS: Ht 175.3 cm; Wt 72.6 kg
[~2023-12-29 13:20] MED LIST changes: +FURO20TA4 PO
[2023-12-29 14:18] LABS: BASOPHILS % (AUTO) 0.3 % (0.0-2.0); EOSINOPHILS # (AUTO) 0.1 K/uL (0.0-0.7); HEMATOCRIT 41 % (39-51); HEMOGLOBIN 13.5 g/dL (13.5-17.5); LYMPHOCYTES # (AUTO) 2.9 K/uL (0.8-4.8); LYMPHOCYTES % (AUTO) 33.8 % (20.0-44.0); MEAN CORPUSCULAR HEMOGLOBIN 30 PG (26.0-33.0); MEAN CORPUSCULAR HGB CONC 33 g/dl (31.0-36.0); MEAN CORPUSCULAR VOLUME 91 fL (80-96); MONOCYTES # (AUTO) 0.6 K/uL (0.1-1.30); MONOCYTES % (AUTO) 6.6 % (2.0-12.0); NEUTROPHILS # (AUTO) 4.9 K/uL (1.8-8.9); NEUTROPHILS % (AUTO) 58.3 % (43.0-81.0); PLATELET COUNT (AUTO) 220 K/uL (150-450); RED BLOOD CELL COUNT(AUTO) 4.46 MIL/uL (4.5-6.0); RED CELL DISTRIBUTION WIDTH 14.7 % (11.5-15.0); WHITE BLOOD COUNT (AUTO) 8.5 K/uL (4.3-11.0)
[2023-12-29 14:28] LABS: CARBON DIOXIDE 22 mmol/L (21-32); CHLORIDE 103 mmol/L (98-107); CREATININE 0.7 mg/dL (0.6-1.3); GLUCOSE 98 mg/dL (74-106); POTASSIUM 3.8 mmol/L (3.5-5.1); SODIUM SERUM 137 mmol/L (136-145); UREA NITROGEN, BLOOD 14 mg/dL (7-18)
[2023-12-29 17:00] VITALS: BP 126/72; TEMP 97.9; O2SAT 98
[2023-12-29 17:17] LABS: NT-PRO BNP 458 pg/mL (0-125)
== END 2023-12-29 17:37 | disposition home or self-care (01) ==
LOC: ER 13:24
DX: S50.311A Abrasion of right elbow, initial encounter (principal); S09.8XXA Other specified injuries of head, initial encounter; R55 Syncope and collapse; R07.89 Other chest pain; I10 Essential (primary) hypertension; E78.5 Hyperlipidemia, unspecified; F17.200 Nicotine dependence, unspecified, uncomplicated; Z79.891 Long term (current) use of opiate analgesic; Z79.1 Long term (current) use of non-steroidal anti-inflammatories (NSAID); Z98.890 Other specified postprocedural states; Z79.899 Other long term (current) drug therapy; W18.39XA Other fall on same level, initial encounter; Y93.89 Activity, other specified; Y92.89 Other specified places as the place of occurrence of the external cause; Y99.8 Other external cause status
CPT/HCPCS: 36415; 70450-TC; 71045-TC; 80048-TC; 83880; 84484-TC; 85025-TC